=== PATIENT | male | born 1995 | race Caucasian/White ===

== ENCOUNTER 2022-10-10 18:31 | Emergency (ER) | payer OTHER, SELFPAY ==
[2022-10-10 19:15] VITALS: BP 150/89; PULSE 87; RESP 20; TEMP 36.6; O2SAT 98
[2022-10-10 20:23] VITALS: BP 152/94; PULSE 80; RESP 16; O2SAT 98
--- NOTE | 2022-10-10 20:44 | ED.ANIMALBIT ---
HPI - Animal Bite General Chief Complaint: Animal Bite Stated Complaint: dog bite Time Seen by Provider: 10/10/22 20:23 Source: patient Mode of arrival: ambulatory Limitations: no limitations History of Present Illness HPI narrative: This is a 27-year-old male who presents to the ED with chief complaint of a dog bite occurring this afternoon. 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 Reports injury to the right thigh. He was able to talk to the otr owner operator truck driver Related Data Allergies Allergy/AdvReac Type Severity Reaction Status Date / Time Sulfa (Sulfonamide Allergy Mild Hives Verified 10/10/22 20:22 Antibiotics) Review of Systems Review of Systems: CONSTITUTIONAL: Denies fever, chills, or sweats. SKIN: See HPI MUSCULOSKELETAL: Denies back pain, joint pain, or myalgia. NEUROLOGIC: Denies headache, numbness, dizziness, or weakness. PSYCHIATRIC: Denies anxiety or depression. [facility] Family History Family History Grandparent Diabetes mellitus Family history of lung cancer Family history of congestive heart failure Mother Hypertension Patient's mother is in good health Father Patient's father is in good health Social History Social History Smoking status: Never smoker Second hand tobacco smoke exposure: No Alcohol intake: current Drinks per week: 10 Substance use: never Exam Narrative: GENERAL: Well-appearing, well-nourished, and in no acute distress. MSK: Normal range of motion. No edema. SKIN: Small area of abrasions and ecchymosis to the right lateral thigh. No active bleeding. No overt contamination. No surrounding redness. NEURO: Alert and oriented x3. No focal deficits. PSYCH: Normal mood and affect. Course Vital Signs Vital signs: Vital Signs Temperature 97.8 F 10/10/22 19:15 Pulse Rate 87 10/10/22 19:15 Respiratory Rate 20 10/10/22 19:15 Blood Pressure 150/89 H 10/10/22 19:15 Pulse Oximetry 98 10/10/22 19:15 Oxygen Delivery Room Air 10/10/22 19:15 Temperature 97.8 F 10/10/22 19:15 Pulse Rate 80 10/10/22 20:23 Respiratory Rate 16 10/10/22 20:23 Blood Pressure 152/94 H 10/10/22 20:23 Pulse Oximetry 98 10/10/22 20:23 Oxygen Delivery Room Air 10/10/22 19:15 MDM - Animal Bite MDM Narrative Medical decision making narrative: This is a 27-year-old male who presents to the ED with chief complaint of a dog bite. The dog is known to have up-to-date shots. Vitals are stable. Exam reveals abrasions and bruising to the right lateral thigh. Area is well cleaned here in the department. Tetanus updated. Prescription for Augmentin given. Return precautions given. Supportive measures discussed. Patient is understanding and agreeable to plan for discharge and follow-up with PCP. Discharge Plan Discharge Clinical Impression: Dog bite of right thigh Patient Disposition: Home, Self-Care Condition: Stable Instructions: Antibiotic Form, Animal Bite (ED) Additional Instructions: Please tack picker your prescription for Augmentin and take it through its full course. Please follow-up with your primary care doctor on this. If you have any fevers, spreading redness, drainage, uncontrollable pain please return to the ER for further evaluation. Please use Tylenol and ibuprofen as needed for pain. Prescriptions: New amoxicillin-pot clavulanate 875-125 mg tablet 1 tablet PO Q12H Qty: 14 0RF Follow-up/Referrals: Sang Jackson DO [Primary Care Provider] - Time of Disposition: 20:50
[2022-10-10] MEDS: AMOXICILLIN/CLAVULANATE K 875-125 MG TAB 1 TABLET PO (21:07)
[2022-10-10] MEDS: TETANUS,DIPHTHERIA,AC PERTUSSIS ADULT (0.5 ML) BOOSTRIX IM (21:07)
[2022-10-10 21:17] VITALS: BP 142/88; PULSE 68; RESP 15; O2SAT 100
== END 2022-10-10 21:19 | disposition home or self-care (01) ==
LOC: ANHED 21:17
PROVIDERS: Emergency Provider Physician Assistant; PCP Internal Medicine
DX: S71.151A Open bite, right thigh, initial encounter (principal); Z23 Encounter for immunization; W54.0XXA Bitten by dog, initial encounter
CPT/HCPCS: 90471; 90715; 99283; A9270